=== PATIENT | male | born 1955 ===

== ENCOUNTER 2022-05-15 07:30 | Inpatient (IN) | payer OTHER ==
[~2022-05-15] VITALS: Ht 167.6 cm; Wt 77.1 kg
[2022-05-15] MEDS ORDERED: COZAAR100 MG PO (08:29)
[2022-05-15] MEDS ORDERED: TOPROL XL100 M1 PO (08:29)
[2022-05-15] MEDS ORDERED: CARDURA PO (08:30)
[2022-05-15] MEDS ORDERED: PREVACID30 MG PO (08:30)
[2022-05-20] MEDS ORDERED: COLACE100 MG PO (07:27)
[2022-05-20] MEDS ORDERED: AMOX-CLAV 875-1 EACH PO (07:29)
[2022-05-20] MEDS ORDERED: PERCOCET 5-3251 EACH PO (07:29)
[2022-05-20] MEDS ORDERED: MEDROLPACK PO (07:29)
== END 2022-05-21 12:31 | disposition home or self-care (01) | DRG 473 ==
LOC: O/R 05-20 05:22 → PED 05-20 05:22 → SURH 05-20 07:00 → PED 05-20 11:47
PROVIDERS: ADMIT Orthopaedic Surgery Orthopaedic Surgery of the Spine; ATTEND Orthopaedic Surgery Orthopaedic Surgery of the Spine
PROC: 0RT30ZZ Resection of Cervical Vertebral Disc, Open Approach (ICD-10-PCS; 2022-05-20)
PROC: 0RG20A0 Fusion of 2 or more Cervical Vertebral Joints with Interbody Fusion Device, Anterior Approach, Anterior Column, Open Approach (ICD-10-PCS; principal; 2022-05-20 07:00)
DX: M50.022 Cervical disc disorder at C5-C6 level with myelopathy (principal); M48.02 Spinal stenosis, cervical region